=== PATIENT | female | born 1955 ===

== ENCOUNTER 2021-09-02 13:32 | Outpatient (CLI) | payer OTHER | END 2021-09-02 13:41 | disposition home or self-care (01) | LOC: MAMO-SONO 13:32 | PROVIDERS: ATTEND Family Medicine | DX: Z12.31 Encounter for screening mammogram for malignant neoplasm of breast (principal) ==

== ENCOUNTER → 2021-09-02 | Outpatient (CLI) | payer OTHER ==
[~2021-09-02] MED LIST: OMEGA-3 FISH OI1 CAP PO
== END | disposition home or self-care (01) ==
LOC: NUCLEAR 11:30
PROVIDERS: ATTEND Family Medicine
DX: M81.0 Age-related osteoporosis without current pathological fracture (principal)

== ENCOUNTER → 2023-06-14 | Emergency (ER) | payer OTHER ==
[~2023-06-14] VITALS: Ht 162.6 cm; Wt 56.2 kg
[~2023-06-14] MED LIST changes: +ACETAMINOPHEN 500 MG GEL..CAP PO STA; +IBU800 MG PO
[2023-06-14 16:41] LABS: HEMATOCRIT 36.9 % (36.0-45.00); HEMOGLOBIN 12.6 g/dL (12.0-15.00); MEAN CELL VOLUME 93.1 fL (80.00-100.00); MEAN CORPUSCULAR HEMOGLOBIN 31.8 pg (27.00-32.0); MEAN CORPUSCULAR HGB CONC 34.2 g/dl (32.0-36.0); PLATELET COUNT 212 K/uL (150-450); RED BLOOD COUNT 3.96 M/uL (4.00-6.00); RED CELL DISTRIBUTION WIDTH 13.4 % (11.5-14.5)
[2023-06-14 17:16] LABS: CALCIUM 9.4 mg/dL (8.5-10.1); CREATININE SERUM 0.76 mg/dL (0.55-1.02); GFR 75.68; POTASSIUM 4.19 mEq/L (3.5-5.1)
== END | disposition home or self-care (01) ==
LOC: ER 14:49
PROVIDERS: General Practice
DX: R51.9 Headache, unspecified (principal); E78.00 Pure hypercholesterolemia, unspecified; Z20.822 Contact with and (suspected) exposure to COVID-19